=== PATIENT | female | born 1995 | race Two or more races ===

== ENCOUNTER 2020-05-02 08:45 | Inpatient (IN) | payer OTHER ==
[2020-05-05] MEDS ORDERED: cefOXitin 2 GM Vial ONE (06:57)
[2020-05-05] MEDS ORDERED: Propofol 200 MG/20 ML SDV ONE (09:45)
[2020-05-05] MEDS ORDERED: fentaNYL 250 MCG/5 ML SDV ONE ×2 (09:45→12:15)
[2020-05-05] MEDS ORDERED: Neostigmine Methylsulfate 1 MG/ML 5 ML Syringe ONE (09:45)
[2020-05-05] MEDS ORDERED: Rocuronium 50 MG/5 ML Vial ONE ×2 (09:45→12:15)
[2020-05-05] MEDS ORDERED: Dexamethasone 4 MG/ML SDV ONE (09:45)
[2020-05-05] MEDS ORDERED: Glycopyrrolate 0.2 MG/ML 5 ML MDV ONE (09:45)
[2020-05-05] MEDS ORDERED: Succinylcholine 200 MG/10 ML MDV ONE (09:45)
[2020-05-05] MEDS ORDERED: Ondansetron 4 MG/2 ML SDV ONE (09:45)
[2020-05-05] MEDS ORDERED: Acetaminophen 500 MG Tab PO ONE (10:00)
[2020-05-05] MEDS ORDERED: Celecoxib 200 MG Cap PO ONE (10:00)
[2020-05-05] MEDS ORDERED: Scopolamine 1.5 MG Transdermal Patch TOP SCH (10:00)
[2020-05-05] MEDS ORDERED: Dextrose 5%-Lactated Ringers 1,000 ML IV SCH ×2 (10:15→14:45)
[2020-05-05] MEDS ORDERED: Albuterol/Ipratropium 3.0-0.5 MG/3 ML Neb Soln NEB ONE (10:30)
[2020-05-05] MEDS ORDERED: Ketamine 50 MG in Sodium Chloride 0.9% 49.5 ML IV SCH (11:00)
[2020-05-05] MEDS ORDERED: Ketamine 500 MG/5 ML MDV IV SCH (11:00)
[2020-05-05] MEDS ORDERED: cefOXitin 2 GM in Sodium Chloride 0.9% 50 ML IV ONE (11:45)
[2020-05-05] MEDS ORDERED: Labetalol 20 MG/4 ML Syringe ONE (13:05)
[2020-05-05] MEDS ORDERED: hydrOXYzine HCL 100 MG/2 ML SDV IM ONE (13:31)
[2020-05-05] MEDS ORDERED: 50% Dextrose in Water 50 ML Syringe IVPUSH PRN (14:08)
[2020-05-05] MEDS ORDERED: Glucagon,Human Recombinant 1 MG Vial IM PRN (14:08)
[2020-05-05] MEDS ORDERED: fentaNYL 100 MCG/2 ML SDV IVPUSH ONE (14:09)
[2020-05-05] MEDS ORDERED: Insulin Lispro 100 Unit/ML 3 ML KwikPen SUBCUT ONE (14:10)
[2020-05-05] MEDS: Magnesium Sulfate/Water 2 GM/50 ML BAG IV SCH ×2 (14:10→17:03)
[2020-05-05] MEDS ORDERED: Cyclobenzaprine 10 MG Tab PO PRN (14:50)
[2020-05-05] MEDS ORDERED: Labetalol 20 MG/4 ML Syringe IVPUSH PRN (15:00)
[2020-05-05] MEDS ORDERED: diphenhydrAMINE 50 MG/ML SDV IVPUSH PRN (15:00)
[2020-05-05] MEDS ORDERED: Acetaminophen 500 MG Tab PO PRN (15:00)
[2020-05-05] MEDS ORDERED: Calcium Gluconate 10% 1 GM/10 ML SDV IVPUSH PRN (15:00)
[2020-05-05] MEDS ORDERED: Insulin Lispro 100 Unit/ML 3 ML KwikPen SUBCUT PRN (15:00)
[2020-05-05] MEDS ORDERED: Metoclopramide 10 MG/2 ML SDV IVPUSH PRN (15:00)
[2020-05-05] MEDS ORDERED: Ondansetron 4 MG/2 ML SDV IVPUSH PRN (15:00)
[2020-05-05] MEDS ORDERED: HYDROmorphone 0.5 MG/0.5 ML Syringe IVPUSH PRN (15:00)
[2020-05-05] MEDS ORDERED: hydrOXYzine HCL 100 MG/2 ML SDV IM PRN (15:00)
[2020-05-05] MEDS ORDERED: oxyCODONE 5 MG Tab PO PRN (15:00)
[2020-05-05] MEDS ORDERED: Albuterol/Ipratropium 3.0-0.5 MG/3 ML Neb Soln INH PRN (15:00)
[2020-05-05] MEDS ORDERED: Lactated Ringers 1,000 ML IV SCH (15:00)
[2020-05-05] MEDS: HYDROmorphone 1 MG/ML Syringe IV PRN ×2 (15:32→20:22)
[2020-05-05] MEDS ORDERED: Pantoprazole 40 MG Vial IVPUSH SCH (16:00)
[2020-05-05] MEDS ORDERED: MVI, Adult with Vitamin K 10 ML, Thiamine 200 MG, Zinc/Copper/Manganese/Selenium 1 ML i... IV SCH ×4 (16:00)
[2020-05-05] MEDS: Heparin Sodium 5,000 Units/ML Vial SUBCUT SCH (17:02)
[2020-05-05] MEDS: Acetaminophen 500 MG Tab PO SCH (17:03)
[2020-05-05] MEDS: cefOXitin 2 GM in Sodium Chloride 0.9% 50 ML IV SCH ×2 (17:12→22:04)
[2020-05-05] MEDS: Albuterol/Ipratropium 3.0-0.5 MG/3 ML Neb Soln INH SCH ×2 (17:34→20:26)
[2020-05-06] MEDS: Heparin Sodium 5,000 Units/ML Vial SUBCUT SCH ×3 (01:07→17:00)
[2020-05-06] MEDS: Acetaminophen 500 MG Tab PO SCH ×3 (01:07→17:02)
[2020-05-06] MEDS ORDERED: Iopamidol 612 MG/ML 50 ML SDV PO STA (02:44)
[2020-05-06] MEDS: cefOXitin 2 GM in Sodium Chloride 0.9% 50 ML IV SCH ×4 (04:48→22:07)
[2020-05-06] MEDS: Albuterol/Ipratropium 3.0-0.5 MG/3 ML Neb Soln INH SCH ×4 (07:17→21:12)
[2020-05-06] MEDS ORDERED: Ondansetron 4 MG Tab.DIS PO PRN (07:29)
[2020-05-06] MEDS ORDERED: Lactated Ringers 1,000 ML IV SCH (07:30)
[2020-05-06] MEDS ORDERED: hydrOXYzine HCl 25 MG Tab PO PRN (07:32)
--- NOTE | 2020-05-06 08:45 | CR ---
[facility] HISTORY: Postbariatric surgery FINDINGS: Patient swallowed water-soluble contrast. Upright views of the abdomen show no evidence of extravasation or obstruction. There is a surgical drain in the left upper quadrant. IMPRESSION: Status post bariatric surgery No extravasation or obstruction seen
[2020-05-06] MEDS: Celecoxib 200 MG Cap PO SCH ×2 (08:50→21:16)
[2020-05-06] MEDS: Cetirizine 10 MG Tab PO SCH (08:50)
[2020-05-06] MEDS: Escitalopram 20 MG Tab PO SCH (08:50)
[2020-05-06] MEDS: SCOPOLAMINE PATCH CHECK TOP SCH (08:51)
--- NOTE | 2020-05-06 10:31 | PN ---
DATE OF SERVICE: 05/06/2020 SUBJECTIVE: Rosa is postoperative day 1 following a laparoscopic Kashmir-en-Y gastric bypass surgery. Her upper GI this morning was normal. Pain is controlled. Oral intake 380, output 700. DESTINEY drain put out 40 mL of a light pink drainage. ASSESSMENT: Kashmir-en-Y gastric bypass surgery. Date of procedure of 05/05/2020. Surgeon: Cedric Paul MD. PLAN: 1. Discontinue D5 LR. 2. Step 2 gastric bypass diet with no cereal. 3. Lactated Ringer at 100 mL per hour. 4. Discontinue Accu-Chek. 5. Discontinue IV Dilaudid. 6. Atarax 50 mg q.4 hours p.r.n. pain. 7. Communication order, 3 med cups per hour, record at bedside. 8. Discontinue continuous pulse ox and tele. 9. Continue use of incentive spirometer. 10.We will evaluate p.r.n. or in a.m. Brit Ballard PA-C /[id number]
[2020-05-06] MEDS ORDERED: MVI, Adult with Vitamin K 10 ML, Thiamine 200 MG, Zinc/Copper/Manganese/Selenium 1 ML i... IV SCH ×4 (16:00)
[2020-05-06] MEDS ORDERED: Pantoprazole 40 MG Delayed-Release Granules 1 Packet PO SCH (16:00)
[2020-05-07] MEDS: Heparin Sodium 5,000 Units/ML Vial SUBCUT SCH ×2 (02:09→09:49)
[2020-05-07] MEDS: Acetaminophen 500 MG Tab PO SCH ×2 (02:10→09:50)
[2020-05-07] MEDS: Albuterol/Ipratropium 3.0-0.5 MG/3 ML Neb Soln INH SCH ×2 (07:18→10:57)
[2020-05-07] MEDS ORDERED: Cyanocobalamin (Vitamin B12) 1,000 MCG/ML SDV IM ONE (09:00)
[2020-05-07] MEDS: SCOPOLAMINE PATCH CHECK TOP SCH (09:44)
[2020-05-07] MEDS: Cetirizine 10 MG Tab PO SCH (09:48)
[2020-05-07] MEDS: Escitalopram 20 MG Tab PO SCH (09:48)
[2020-05-07] MEDS: Celecoxib 200 MG Cap PO SCH (09:49)
--- NOTE | 2020-05-09 14:49 | DISCH ---
FINAL DIAGNOSES: 1. Morbid obesity. 2. Hepatomegaly. 3. Paraesophageal diaphragmatic hernia associated with mediastinal lipoma. SECONDARY DIAGNOSES: 1. Intermittent asthma. 2. Probable early diabetes or prediabetes. 3. History of anxiety. 4. Environmental allergies. OPERATIVE PROCEDURE: Done on the date of admission of 05/05, diagnostic laparoscopy with: 1. Laparoscopic Kashmir-en-Y gastric bypass with long limb gastroenterostomy. 2. Eyad-Cut needle liver biopsy. 3. Repair of paraesophageal diaphragmatic hernia. 4. Excision of mediastinal lipoma. SUMMARY: This is a 25-year-old female, presenting with longstanding morbid obesity and increasingly significant comorbidities. After preoperative evaluation and discussion, she wished to proceed with a gastric bypass procedure. This was done on the date of admission along with the repair of the hiatal hernia and liver biopsy. Postoperatively, she has done very well. At this point, she is not requiring anything, but Tylenol and Celebrex for her discomfort, and will be discharged home on her albuterol, Lexapro, Zyrtec, Celebrex, and ketoprofen eyedrops p.r.n. We will hold the metformin at this point more or less as prophylaxis against diabetes, high blood sugars, and we will hold that at this point postoperatively, and instructed if able to, to measure blood sugars roughly twice a day at various times to see how going in that regard. Otherwise, she will be following up with Brit Ballard at [facility] on 05/16, and will be instructed to stay on a step 2 diet until that appointment. /[id number]
--- NOTE | 2020-05-17 12:27 | OR ---
DATE OF PROCEDURE: 05/05/2020 SURGEON: Cedric Paul MD PREOPERATIVE DIAGNOSIS: Morbid obesity. POSTOPERATIVE DIAGNOSES: 1. Morbid obesity. 2. Marked hepatomegaly. 3. Paraesophageal diaphragmatic hernia. 4. Mediastinal lipoma. OPERATIVE PROCEDURES: 1. Diagnostic laparoscopy with: a. Laparoscopic Kashmir-en-Y gastric bypass with long limb gastroenterostomy (58657). b. Eyad-Cut needle liver biopsy (79099). c. Repair of paraesophageal diaphragmatic hernia (80916). d. Excision of mediastinal lipoma (96458). ANESTHESIA: General. GREENHOUSE SUPERINTENDENT: Brit Ballard PA-C. INDICATIONS FOR PROCEDURE: A 25-year-old presenting with longstanding morbid obesity and increasingly significant comorbidities. After preoperative evaluation and discussion, she wished to proceed with a gastric bypass procedure. Potential risks including bleeding, infection, leaks from various GI tract closures, and problems with bowel obstruction over time as well as the possibility of cardiopulmonary, septic, or hemorrhagic complications leading to were discussed, and the patient wishes to proceed. DETAILS OF PROCEDURE: The patient was taken to the operating room and placed in a supine position. After general endotracheal anesthesia was induced, she was converted to a lithotomy position and the abdomen prepped and draped. At 15 cm inferior and 5 cm left of the xiphoid process a transverse incision was made and the peritoneal cavity entered under direct vision with an Optiview trocar and inflated to 15 mmHg pressure with CO2. Bilateral transversus abdominis plane blocks were then placed and 5 additional trocars were placed across the upper and mid abdomen. The patient was noted to have marked hepatomegaly with liver being grossly fatty infiltrated and roughly 2 to 3 times normal size. Eyad-Cut needle biopsies were obtained from left lobe of the liver. Minimal bleeding from biopsy sites was controlled with electrocautery. The omentum was then divided in the midline up to the level of the transverse colon. This allowed identification of the small bowel to the ligament of Treitz. Small bowel was then traced out 200 cm distal to the ligament of Treitz, was divided transversely with a GEOVANY stapler. Small bowel was then traced out additional 200 cm where the [id number] enteroenterostomy was accomplished with internal firing of the Endo-GEOVANY 60 mm stapler. Common wound was then closed transversely with the same stapler and angles anastomosed and mesenteric defect approximated with some 0 Ethibond stitch along with fibrin sealant. The divided end of the Kashmir limb was then from the mesentery for a few centimeters, which allowed an antecolic positioning of the [place] limb up to the level of the gastroesophageal junction without tension. The liver was then retracted anteriorly. The patient was noted to have a moderate-sized paraesophageal diaphragmatic hernia. The peritoneum overlying was then divided and reflected downward. During the course of the dissection, a mediastinal lipoma was encountered which was excised to facilitate more adequate crural repair, which was then accomplished with 0 Ethibond sutures reinforced with PTFE pledgets. These were placed in an anterior location. The gastrointestinal catheter was inflated to 15 mL and pulled up snugly against the EG junction, gastric wall over the apex, balloon was then marked with electrocautery and the catheter deflated and pulled up into the esophagus. The lesser omental tissue adjacent to the gastric cardia was then incised allowing dissection behind the stomach at that level. Pouch formation was initiated with transverse firing of the GEOVANY stapler at the level of the cauterized jazyln on the gastric cardia and then completed with additional firings of GEOVANY floridalma up to and through the angle of His. Upon completion of the pouch, both staple lines were noted to be intact. The anvil of a 25 mm EEA stapler was attached to [place] sump-type tube and was brought down through the mouth, taken out through a small opening in the gastric pouch, allowing the anvil likewise to be placed into the gastric pouch. The divided end of the [place] limb was then opened and the main body of the EEA stapler passed several centimeters into the lumen of the small bowel, brought up the anvil, united with it thus creating the gastrojejunostomy. Upon removal of stapler, double donuts of mucosa were noted within it, and the small bowel was closed off with a vascular staple line. Gastrojejunostomy was then reinforced with some 3-0 Vicryl seromuscular stitch along with fibrin sealant. Leak test was accomplished with injection of 120 mL of air in the gastric pouch while it was submerged with cefoxitin-containing saline solution. No leaks were identified. A single Elio- Lanza drain was then placed adjacent to the gastrojejunostomy and from there up into the splenic fossa. The trocars were then sequentially removed and peritoneal cavity deflated. Incisions were closed with 4-0 Vicryl skin stitch which was also used to fix the drain, and the patient taken to the recovery room in satisfactory condition. Physician automotive parts counter assistant, Brit Ballard, played an essential role in assisting in this case, helping to position the patient, retract structures as needed, as well as suturing and cutting sutures when indicated. Her presence improved patient safety and decreased operative time. Cedric Paul MD /[id number]
== END 2020-05-07 11:13 | disposition home or self-care (01) | DRG 621 ==
LOC: JP.SDS 05-05 09:39 → JP.SDSSCHI 05-05 09:39 → EDSTATUS 05-05 10:45 → JP.MS 05-05 13:45
PROVIDERS: ADMIT Surgery; ATTEND Surgery
PROC: 0D164ZA Bypass Stomach to Jejunum, Percutaneous Endoscopic Approach (ICD-10-PCS; principal; 2020-05-05)
PROC: 0FB24ZX Excision of Left Lobe Liver, Percutaneous Endoscopic Approach, Diagnostic (ICD-10-PCS; 2020-05-05)
PROC: 0BQT4ZZ Repair Diaphragm, Percutaneous Endoscopic Approach (ICD-10-PCS; 2020-05-05)
PROC: 0JB63ZZ Excision of Chest Subcutaneous Tissue and Fascia, Percutaneous Approach (ICD-10-PCS; 2020-05-05)
DX: E66.01 Morbid (severe) obesity due to excess calories (principal); R16.0 Hepatomegaly, not elsewhere classified; K44.9 Diaphragmatic hernia without obstruction or gangrene; D17.1 Benign lipomatous neoplasm of skin and subcutaneous tissue of trunk; J45.20 Mild intermittent asthma, uncomplicated; F41.9 Anxiety disorder, unspecified; Z68.44 Body mass index [BMI] 60.0-69.9, adult; Z79.899 Other long term (current) drug therapy
CPT/HCPCS: 36415; 74240; 74240-26; 81025; 82962; 86850; 86900; 86901; 88304; 88307; 88313; 93005; 94640; 94762; A9270-GY; C9113; J0171; J0330; J0694; J1100; J1170; J1644; J1815; J2405; J2704; J2710; J2795; J3010; J3410; J3411; J3420; J3475; J3490; J7120; J7121; J7620-GY; Q9967